=== PATIENT | female | born 1985 | race Asian ===

== ENCOUNTER 2018-11-25 16:19 | Inpatient (IN) | payer OTHER ==
[~2018-11-25] VITALS: Ht 147.3 cm; Wt 54.5 kg
[2018-11-25] MEDS ORDERED: LACTATED RINGERS 1,000 ML IV SCH ×2 (16:31→17:01)
[2018-11-25] MEDS ORDERED: D5%-LACTATED RINGERS 1,000 ML IV SCH (16:31)
[2018-11-25] MEDS ORDERED: OXYTOCIN 30U/ 0.9% NaCL 500ML 500 ML IV ONE (16:31)
[2018-11-25] MEDS ORDERED: OXYTOCIN 30U/ 0.9% NaCL 500ML 500 ML ONE (16:51)
[2018-11-25] MEDS ORDERED: LIDOCAINE 1%, 20ML ONE (16:52)
[2018-11-25] MEDS ORDERED: MISOPROSTOL 200 MCG TABLET ONE (16:52)
[2018-11-25] MEDS ORDERED: NEWBORN KIT ONE (16:52)
[2018-11-25] MEDS ORDERED: ONDANSETRON 2MG/ML, 2ML IVPush PRN (17:00)
[2018-11-25] MEDS ORDERED: FENTANYL PF 100 MCG/2ML IV PRN (17:00)
[2018-11-25] MEDS ORDERED: FENTANYL/BUPIV./NS/PF 250 ML EPIDCONT SCH (17:01)
[2018-11-25 17:02] LABS: BASOPHILS # (AUTO) 0.02 x10^3/uL (0-0.1); BASOPHILS % (AUTO) 0 % (0-1); EOSINOPHILS # (AUTO) 0.03 x10^3/uL (0-0.4); EOSINOPHILS % (AUTO) 1 % (1-7); LYMPHOCYTES % (AUTO) 25 % (22-44); MD NO; MEAN CORPUSCULAR HEMOGLOBIN 28.6 pg (27.0-34.8); MEAN CORPUSCULAR HGB CONC 33.1 g/dL (32.4-35.8); MEAN CORPUSCULAR VOLUME 86.6 fL (80-100); MEAN PLATELET VOLUME 8.6 fL (7.4-10.4); MONOCYTES # (AUTO) 0.45 x10^3/uL (0.2-0.8); MONOCYTES % (AUTO) 6 % (2-9); NEUTROPHILS # (AUTO) 4.81 x10^3/uL (1.8-6.8); NEUTROPHILS % (AUTO) 68 % (42-75); PLATELET COUNT 241 x10^3/uL (130-400); RED BLOOD COUNT 4.42 x10^6/uL (3.82-5.3)
[2018-11-25] MEDS ORDERED: LACTATED RINGERS 1,000 ML IVBOLUS PRN (17:30)
[2018-11-25] MEDS ORDERED: EPHEDRINE 50 MG/ML, 1ML IVPush PRN (17:30)
[2018-11-25] MEDS ORDERED: FENTANYL PF 500 MCG, BUPIVACAINE/PF 0.5%, 30ML 62.5 ML in SODIUM CHLORIDE 0.9% 177.5 ML EPIDCONT SCH (17:30)
[2018-11-25] MEDS ORDERED: FENTANYL PF 100 MCG/2ML ONE ×2 (20:32→21:43)
[2018-11-25] MEDS: FENTANYL PF 100 MCG/2ML IVPush PRN ×2 (20:33→21:45)
[2018-11-26] MEDS ORDERED: morphine SULFATE/PF 0.5 MG/ML, 10ML ONE
[2018-11-26] MEDS ORDERED: BUPIVACAINE 0.25% ONE (01:00)
[2018-11-26] MEDS ORDERED: TERBUTALINE 1 MG/ML, 1ML ONE (01:46)
[2018-11-26] MEDS ORDERED: FENTANYL/BUPIV./NS/PF 250 ML EPIDCONT SCH (02:40)
[2018-11-26] MEDS ORDERED: LACTATED RINGERS 1,000 ML IV SCH (02:40)
[2018-11-26] MEDS ORDERED: NALOXONE 0.4 MG/ML, 1ML IVPush PRN (03:00)
[2018-11-26] MEDS ORDERED: DIPHENHYDRAMINE 50 MG/ML, 1ML IVPush PRN (03:00)
[2018-11-26] MEDS ORDERED: ONDANSETRON 2MG/ML, 2ML IVPush PRN (03:00)
[2018-11-26] MEDS ORDERED: LACTATED RINGERS 1,000 ML IVBOLUS PRN (03:00)
[2018-11-26] MEDS ORDERED: EPHEDRINE 50 MG/ML, 1ML IVPush PRN (03:00)
[2018-11-26] MEDS: LACTATED RINGERS 1,000 ML IV SCH ×4 (07:37→17:37)
[2018-11-26] MEDS ORDERED: MEASLES,MUMPS&RUBELLA VACC/PF 0.5 ML SQ-VACC PRN (08:00)
[2018-11-26] MEDS ORDERED: ONDANSETRON 2MG/ML, 2ML IV PRN (08:00)
[2018-11-26] MEDS ORDERED: CARBOPROST TROMETHAMINE 250 MCG/ML, 1ML IM PRN (08:00)
[2018-11-26] MEDS ORDERED: DIPH,PERTUSS(ACELL),TET VAC/PF NC IM-VACC PRN (08:00)
[2018-11-26] MEDS ORDERED: OXYcodone IR 5MG TABLET PO PRN (08:00)
[2018-11-26] MEDS ORDERED: ENOXAPARIN 40 MG/0.4 ML SQ SCH (08:00)
[2018-11-26] MEDS ORDERED: ACETAMINOPHEN 325 MG TABLET PO PRN (08:00)
[2018-11-26] MEDS ORDERED: SIMETHICONE 80 MG CHEW TAB PO PRN (08:00)
[2018-11-26] MEDS ORDERED: MISOPROSTOL 200 MCG TABLET PR PRN ×2 (08:00→09:30)
[2018-11-26] MEDS ORDERED: morphine SULFATE 10 MG/ML, 1ML IVPush PRN (08:00)
[2018-11-26] MEDS ORDERED: IBUPROFEN 600 MG TABLET PO PRN (08:00)
[2018-11-26] MEDS ORDERED: METHYLERGONOVINE 0.2 MG/ML IM PRN (08:00)
[2018-11-26] MEDS ORDERED: KETOROLAC 30 MG/1 ML ONE (08:58)
[2018-11-26] MEDS ORDERED: OXYcodone/APAP 5/325MG TABLET ONE (08:59)
[2018-11-26] MEDS: PRENATAL VIT/IRON/FA 1 EACH TABLET PO SCH (09:00)
[2018-11-26] MEDS: KETOROLAC 30 MG/1 ML IV SCH ×3 (09:24→21:28)
[2018-11-26] MEDS: OXYcodone/APAP 5/325MG TABLET PO PRN ×3 (10:55→19:54)
[2018-11-26] MEDS: OXYTOCIN 30U/ 0.9% NaCL 500ML 500 ML IV SCH ×2 (10:56→17:37)
[2018-11-26 11:30] VITALS: BP 116/72
[2018-11-26 16:00] VITALS: BP 112/70
[2018-11-26 16:10] LABS: MEAN CORPUSCULAR HGB CONC 33.5 g/dL (32.4-35.8); MEAN CORPUSCULAR VOLUME 86.7 fL (80-100); MEAN PLATELET VOLUME 8.1 fL (7.4-10.4); PLATELET COUNT 181 x10^3/uL (130-400); RED BLOOD COUNT 3.47 x10^6/uL (3.82-5.3); RED CELL DISTRIBUTION WIDTH 14.7 % (9.6-15.2)
[2018-11-26 16:35] LABS: BASOPHILS # (AUTO) 0.04 x10^3/uL (0-0.1); BASOPHILS % (AUTO) 0 % (0-1); EOSINOPHILS # (AUTO) 0.01 x10^3/uL (0-0.4); EOSINOPHILS % (AUTO) 0 % (1-7); LYMPHOCYTES # (AUTO) 1.75 x10^3/uL (1-3.4); LYMPHOCYTES % (AUTO) 11 % (22-44); MD SCAN; MONOCYTES # (AUTO) 0.55 x10^3/uL (0.2-0.8); MONOCYTES % (AUTO) 3 % (2-9); NEUTROPHILS % (AUTO) 86 % (42-75)
[2018-11-26 19:25] VITALS: BP 109/73
[2018-11-26] MEDS: DOCUSATE 100 MG CAPSULE PO PRN (19:54)
[2018-11-27] VITALS: BP 112/71
[2018-11-27] MEDS: OXYcodone/APAP 5/325MG TABLET PO PRN ×5 (00:03→19:55)
[2018-11-27] MEDS: LACTATED RINGERS 1,000 ML IV SCH ×3 (03:37→23:37)
[2018-11-27] MEDS: OXYTOCIN 30U/ 0.9% NaCL 500ML 500 ML IV SCH ×3 (03:37→23:37)
[2018-11-27] MEDS: KETOROLAC 30 MG/1 ML IV SCH ×4 (03:43→22:07)
[2018-11-27 05:00] VITALS: BP 97/62
[2018-11-27 07:50] VITALS: BP 107/70
[2018-11-27] MEDS: PRENATAL VIT/IRON/FA 1 EACH TABLET PO SCH (09:18)
[2018-11-27] MEDS: DOCUSATE 100 MG CAPSULE PO PRN ×2 (09:18→19:55)
[2018-11-27 20:00] VITALS: BP 117/75
[2018-11-28] MEDS: OXYcodone/APAP 5/325MG TABLET PO PRN ×3 (00:30→14:07)
[2018-11-28] MEDS: KETOROLAC 30 MG/1 ML IV SCH (04:45)
[2018-11-28 07:40] VITALS: BP 120/77
[2018-11-28] MEDS: PRENATAL VIT/IRON/FA 1 EACH TABLET PO SCH (09:00)
[2018-11-28] MEDS: OXYTOCIN 30U/ 0.9% NaCL 500ML 500 ML IV SCH (09:37)
[2018-11-28] MEDS: LACTATED RINGERS 1,000 ML IV SCH (09:37)
[2018-11-28] MEDS ORDERED: OXYC-302 PO (13:05)
[2018-11-28] MEDS ORDERED: IBUP-1222 PO (13:05)
== END 2018-11-28 15:25 | disposition home or self-care (01) | DRG 787 ==
LOC: LDOP 16:19 → LDIP 16:31 → 2NW 11-26 11:09
PROVIDERS: ADMIT Obstetrics & Gynecology Maternal & Fetal Medicine; ATTEND Obstetrics & Gynecology Maternal & Fetal Medicine
PROC: 10D00Z1 Extraction of Products of Conception, Low, Open Approach (ICD-10-PCS; principal; 2018-11-25)
DX: O62.2 Other uterine inertia (principal); O63.9 Long labor, unspecified; Z37.0 Single live birth; Z80.3 Family history of malignant neoplasm of breast; Z82.61 Family history of arthritis; Z83.3 Family history of diabetes mellitus; Z3A.39 39 weeks gestation of pregnancy
CPT/HCPCS: 36415; J3490; J7121; S0020; 82803; 85025; 86850; 86900; G0378; J0690; J1885; J2274; J2405; J3010; J2370; J2590; J7050; J7120